=== PATIENT | female | born 1965 | race Two or more races ===

== ENCOUNTER 2024-04-30 23:53 | Emergency (ER) | payer MEDICAID, SELFPAY ==
[2024-05-01 00:08] VITALS: BP 121/78; PULSE 64; RESP 18; TEMP 36.7; O2SAT 96
--- NOTE | 2024-05-01 00:21 | EDNOTE_ITS ---
ED Skin Abcess FB-RME/HPI General Chief complaint: Skin/Abscess/Foreign Body Stated complaint: RASH TO FACE Time Seen by Provider: 05/01/24 00:21 Source: patient Arrival date/time: 04/30/24 23:53 58-year-old female with a history of hypertension presents to the emergency room with a chief complaint of a rash to her face as well as itchiness x 2 days Mode of arrival: ambulatory Limitations: no limitations Related Data Home Medications ?Medication ?Instructions ?Recorded ?Confirmed loratadine 10 mg tablet (Claritin) 10 mg PO QDAY #0 tabs 08/28/16 10/14/17 lisinopril 20 mg tablet 20 mg PO QDAY 10/14/17 10/14/17 Allergies Allergy/AdvReac Type Severity Reaction Status Date / Time NKA* Allergy Uncoded 10/14/17 08:14 Review of Systems Review of Systems Systems Reviewed: All systems reviewed, normal except as documented Constitutional Constitutional: Reports system reviewed and no additional complaints, except as documented, Denies fatigue, Denies fever(s), Denies headache(s) and Denies weakness Eyes Eyes: Reports system reviewed and no additional complaints, except as documented, Denies blurry vision, Denies change in vision and Reports itchy eyes ENT Ears, Nose, Mouth, and Throat: Reports system reviewed and no additional complaints, except as documented, Denies otalgia, Denies headache(s), Denies nasal congestion, Denies throat swelling, Denies tongue swelling and Denies vertigo Cardiovascular Cardiovascular: Reports system reviewed and no additional complaints, except as documented, Denies chest pain, Denies dyspnea and Denies dyspnea on exertion Respiratory Respiratory: Reports system reviewed and no additional complaints, except as documented, Denies chest congestion, Denies cough, Denies dyspnea, Denies dyspnea on exertion and Denies wheezing Gastrointestinal Gastrointestinal: Reports system reviewed and no additional complaints, except as documented, Denies abdominal pain, Denies cramping, Denies nausea and Denies vomiting Genitourinary Genitourinary: Reports system reviewed and no additional complaints, except as documented Musculoskeletal Musculoskeletal: Reports system reviewed and no additional complaints, except as documented and Denies back pain Integumentary/Breasts Skin/Breast: Reports system reviewed and no additional complaints, except as documented and Denies wounds Neurologic Neurologic: Reports system reviewed and no additional complaints, except as documented, Denies confusion, Denies headache(s), Denies lack of coordination, Denies vertigo and Denies weakness Psychiatric Psychiatric: Reports system reviewed and no additional complaints, except as documented, Denies anxiety, Denies confusion, Denies depression, Denies paranoia, Denies suicidal ideation and Denies tactile hallucinations Endocrine Endocrine: Reports system reviewed and no additional complaints, except as documented and Denies fatigue Hematologic/Lymphatic Hematologic/Lymphatic: Reports system reviewed and no additional complaints, except as documented and Denies lymphadenopathy Allergic/Immunologic Allergic/Immunologic: Reports system reviewed and no additional complaints, except as documented, Reports itchy eyes, Denies throat swelling, Denies tongue swelling, Reports urticaria and Denies wheezing Past Medical History Past Medical History NEUROLOGIC: Negative Seizures CARDIAC: Positive Hypotension; Negative Congestive Heart Failure RESPIRATORY: Negative Chronic Obstructive Pulmonary Disease (COPD) GENITOURINARY: Negative Renal Disease ENDOCRINE: Negative Diabetes Mellitus Type 1 or Diabetes Mellitus Type 2 Social History SMOKING STATUS: Never smoker ED Exam General Limitations: Present no limitations General appearance: Present alert and in no apparent distress Head Head exam: Present atraumatic Eye Eye exam: Present normal appearance, PERRL and EOMI ENT ENT exam: Present normal exam, normal oropharynx and mucous membranes moist Neck Neck exam: Present normal inspection, full ROM and trachea midline Chest Chest inspection: Present normal inspection and symmetric chest wall rise Respiratory Respiratory exam: Present normal lung sounds bilaterally Cardiovascular Cardiovascular exam: Present regular rate, normal rhythm and normal heart sounds Abdominal Exam Abdominal exam: Present soft and normal bowel sounds Extremities Exam Extremities exam: Present normal inspection and full ROM Back Exam Back exam: Present normal inspection and full ROM Neurological Exam Neurological exam: Present alert, oriented X3 and CN II-XII intact Psychiatric Psychiatric exam: Present normal affect and normal mood Skin Skin exam: Present warm, dry, intact, normal color and rash Expanded Skin Exam Type of lesion: Present rash Distribution: Present face Description: Present erythematous, swelling and macular Course Quality Measures none Orders Category Date Time Status Dexamethasone Inj [Decadron Inj] Med 05/01/24 00:20 Discontinued 10 mg PO X1 ONE DiphenhydrAMINE INJ [Benadryl Inj] Med 05/01/24 00:20 Discontinued 25 mg IM X1 ONE Famotidine [Pepcid] Med 05/01/24 00:20 Discontinued 20 mg PO X1 ONE Vital Signs Vital signs: Vital Signs Temperature 98.1 F 05/01/24 00:08 Pulse Rate 64 05/01/24 00:08 Respiratory Rate 18 05/01/24 00:08 Blood Pressure 121/78 05/01/24 00:08 Pulse Oximetry (%) 96 05/01/24 00:08 Oxygen Delivery Method Room Air 05/01/24 00:08 O2 saturation 96% within normal limits Skin / Abscess / Foreign Body MDM Narrative MDM Narrative:: 58-year-old female with a history of hypertension presents to the emergency room with a chief complaint of a rash to her face as well as itchiness x 2 days clinically the patient appears nontoxic and in no apparent distress. Physical examination shows clear bilateral lung sounds with no wheezing stridor or any respiratory distress. The patient is having mild swelling and erythema to the face as well as itchiness to her face. Patient was given antihistamines and reevaluated in 45 minutes with significant improvement to her symptoms. Patient was discharged and educated to follow-up with her primary care provider and return to the emergency room for any evidence of worsening signs or symptoms Patient data External records reviewed:: [facility] previous records Clinical information provided by:: patient Social determinants that could affect healthcare access:: none Patient has the following chronic illnesses:: No chronic illness How is presenting disease/condition affected by chronic disease/condition?: no chronic disease Evaluation data The following diagnostics were reviewed and interpreted by me:: lab results and radiology exam(s) Lab and/or radiology exams considered but not ordered:: Labs and radiology exams considered and ordered Interpretation Summary: N/A Medications / Prescriptions Medications or Prescriptions considered but not ordered:: Medication given Medication administrations:: Medication Administration History Discontinued Medications Dexamethasone Sodium Phosphate (Dexamethasone Sod Phos Inj 10 Mg/Ml Vial) 10 mg PO X1 ONE Stop: 05/01/24 00:21 Last Admin: 05/01/24 00:30 Dose: 10 mg Documented By: OA Diphenhydramine HCl (Diphenhydramine Inj 50 Mg/Ml Vial) 25 mg IM X1 ONE Stop: 05/01/24 00:21 Last Admin: 05/01/24 00:30 Dose: 25 mg Documented By: OA Famotidine (Famotidine 20 Mg Tablet) 20 mg PO X1 ONE Stop: 05/01/24 00:21 Last Admin: 05/01/24 00:30 Dose: 20 mg Documented By: OA Medication given Consultations Consultation(s) initiated? (list below): No Diagnosis Skin/Abscess Differential Diagnosis: abscess of skin or subcutaneous tissue, viral exanthem, urticaria, allergic reaction to drug, cellulitis and contact dermatitis Most likely diagnosis given after review of the tests above:: Allergic reaction Admission Indicated Admission indicated?: not indicated Admission Request Was there a request for admission?: No Disposition Plan Disposition Plan: Discharge Discharge Attestation Discharge Attestation: The patient and all family members were given an opportunity to ask questions and understood the discharge instructions. Discharge instructions specifically effects, indications for sooner follow up or return to the emergency department, and the expected course of current diagnosis. Patient condition: Stable Discharge Plan Plan Patient Disposition: HOME (Self Care) Disposition Comment: Stable Prescriptions/Referrals Prescriptions/Med Rec: No Action loratadine [Claritin] 10 MG tablet 10 mg PO QDAY Qty: 0 lisinopril 20 mg Tablet 20 mg PO QDAY Problem List Clinical Impression: Pruritus, Rash of face Patient/Caregiver Discharge Instructions Additional Instructions: Por favor, consulte con riggs m?dico de cabecera en las pr?ximas 24 a 48 horas Si nota alg?n signo o s?ntoma que empeora, regrese a la camelia de emergencias de inmediato Print Language: Divehi Stand Alone Forms: [employer] Award Info., Patient Portal Info Letter PA/PHOTOGRAPH DEVELOPER Supervising Physician JUN/PHOTOGRAPH DEVELOPER Supervising Physician: Dr Cutler
[2024-05-01] MEDS: DEXAMETHASONE SOD PHOS INJ 10 MG/ML VIAL PO (00:30)
[2024-05-01] MEDS: FAMOTIDINE 20 MG TABLET PO (00:30)
[2024-05-01] MEDS: DiphenhydrAMINE INJ 50 MG/ML VIAL 25 MG IM (00:30)
== END 2024-05-01 01:29 | disposition home or self-care (01) ==
LOC: SERX 05-01 01:06
PROVIDERS: Emergency Provider Emergency Medicine; PCP Physician Assistant
DX: L29.9 Pruritus, unspecified (principal); I10 Essential (primary) hypertension
CPT/HCPCS: 96372; 99283; J1100; J1200; A9270

== ENCOUNTER → 2024-04-30 | Outpatient (CLI) | payer MEDICAID, SELFPAY ==
--- NOTE | 2024-04-30 13:00 | XR_ITS ---
Examination: Screening digital mammography, bilateral Computer aided detection 3-D breast Tomosynthesis, bilateral Date and time of exam: April 30, 2024 1252 hrs. Compared to mammograms dating to February 04, 2019 Indication: Screening Technique: Nonmagnified MLO, CC views of the breasts to been obtained, reconstructed from 3-D Tomosynthesis images. R2 computer aided detection program utilized for evaluation of suspicious masses and/or abnormal calcifications. 3-D Tomosynthesis images obtained. Findings: Scattered areas of fibroglandular density. Benign calcifications. No interval suspicious masses Impression: BI-RADS category II: Benign Findings. Recommend 1 year follow-up mammogram.
== END | disposition home or self-care (01) ==
LOC: CDIM 12:39
PROVIDERS: PCP Physician Assistant; Referring Provider Physician Assistant; Visit Provider Physician Assistant
DX: Z12.31 Encounter for screening mammogram for malignant neoplasm of breast (principal); R92.323 Mammographic fibroglandular density, bilateral breasts; R92.1 Mammographic calcification found on diagnostic imaging of breast
CPT/HCPCS: 77063; 77067